=== PATIENT | male | born 1965 | race Hispanic/Latino ===

== ENCOUNTER → 2024-08-18 | Day surgery (SDC) | payer OTHER ==
[~2024-08-18] MED LIST: D3-5000125 MCG; FISH OIL 1,0001 EAC7; FLOMAX0.4 MG PO; NIACIN100 MG PO; TUMERIC
[2024-08-18] MEDS: LACTATED RINGER'S 1,000 ML ONE (09:57)
[2024-08-18 11:19] VITALS: TEMP 97.4
[2024-08-18 11:40] VITALS: BP 115/82; PULSE 90; RESP 18; O2SAT 99
[2024-08-20 05:11] LABS: C-REACTIVE PROTEIN <1 mg/L (0-10)
[2024-08-22 05:15] LABS: ENDOMYSIAL ANTIBODIES, IGA Negative (Negative)
[2024-08-22 06:31] LABS: IMMUNOGLOBULIN A 237 mg/dL (90-386); TISSUE TRANSGLUTAMINASE IGA AB <2 U/mL (0-3)
== END | disposition home or self-care (01) ==
LOC: OR 09:27
PROVIDERS: ATTEND Internal Medicine Gastroenterology
DX: K62.89 Other specified diseases of anus and rectum (principal); K64.8 Other hemorrhoids; Z71.3 Dietary counseling and surveillance; N40.0 Benign prostatic hyperplasia without lower urinary tract symptoms; F17.210 Nicotine dependence, cigarettes, uncomplicated; Z71.6 Tobacco abuse counseling; Z01.810 Encounter for preprocedural cardiovascular examination; Z79.899 Other long term (current) drug therapy; Z68.29 Body mass index [BMI] 29.0-29.9, adult; Z80.0 Family history of malignant neoplasm of digestive organs
CPT/HCPCS: 36415; 45380; 82784; 83516; 83630; 83993; 86140; 86256; 87045; 87177; 87324; 87449; 93005; J7121; 45378